=== PATIENT | male | born 2000 | race Caucasian/White ===

== ENCOUNTER 2022-09-23 14:10 | Emergency (ER) | payer BC ==
[2022-09-23 14:26] VITALS: RESP 16
[2022-09-23] MEDS ORDERED: RABIES VACCINE (PCEC) 2.5 UNIT KIT IM ONE (15:40)
[2022-09-23] MEDS ORDERED: DIPH,PERTUS(ACELL)TETVAC-LF 0.5 ML VIAL IM ONE (15:40)
[2022-09-23] MEDS ORDERED: RABIES IMM GLOB 300 UNIT/2 ML VIAL IM ONE (16:05)
--- NOTE | 2022-09-23 16:05 | ED ---
Animal Bite HPI - General Chief Complaint: Animal Bite Stated Complaint: Rabies Exposure Time Seen by Provider: 09/23/22 15:35 Source: patient, RN notes reviewed Mode of arrival: ambulatory Limitations: no limitations - History of Present Illness Initial Comments: Patient is a 22-year-old male presented to the emergency room with concerns of exposure to rabies from a bat. He was bit while wearing gloves after capturing a bat yesterday. He does not believe that the bite broke the skin and was able to verma through his glove but was unsure if he should be vaccinated to prevent rabies. After further discussion of risk factors and exposure revealed he was walking around with possible exposure to bat feces or bat saliva as well. He denies any significant past medical history. - Related Data Previous Rx's Medication Instructions Recorded Rabies Vaccine (Pcec) [Rabavert 2.5 unit IM DIRECTED 3 Days #3 09/23/22 Rabies Vaccine Kit] kit Allergies Allergy/AdvReac Type Severity Reaction Status Date / Time No Known Allergies Allergy Verified 09/23/22 14:21 Review of Systems ROS Statement: Those systems with pertinent positive or pertinent negative responses have been documented in the HPI. ROS Other: All systems not noted in ROS Statement are negative. Past Medical History Past Medical History: No Reported History History of Any Multi-Drug Resistant Organisms: None Reported Past Surgical History: Adenoidectomy, Tonsillectomy Additional Past Surgical History / Comment(s): nasal surgery Past Psychological History: No Psychological Hx Reported Smoking Status: Never smoker Past Alcohol Use History: None Reported Past Drug Use History: Marijuana General Exam Limitations: no limitations General appearance: alert, in no apparent distress Head exam: Present: atraumatic, normocephalic, normal inspection Eye exam: Present: normal appearance, PERRL, EOMI. Absent: scleral icterus, conjunctival injection, periorbital swelling ENT exam: Present: normal exam, mucous membranes moist Neck exam: Present: normal inspection, full ROM Respiratory exam: Absent: respiratory distress, accessory muscle use Cardiovascular Exam: Present: regular rate GI/Abdominal exam: Present: soft. Absent: distended, tenderness, guarding, rebound, rigid Extremities exam: Present: normal inspection, full ROM. Absent: pedal edema, joint swelling Back exam: Present: normal inspection Neurological exam: Present: alert, oriented X3, CN II-XII intact Psychiatric exam: Present: normal affect, normal mood Skin exam: Present: warm, dry, intact, normal color. Absent: rash Course Vital Signs 09/23/22 09/23/22 14:21 17:00 Temperature 99.2 F 98.6 F Pulse Rate 117 H 96 Respiratory 16 16 Rate Blood Pressure 141/85 134/76 O2 Sat by Pulse 95 96 Oximetry Medical Decision Making - Medical Decision Making Was pt. sent in by a medical professional or institution (HARJIT Piper, CRIMINAL JUSTICE TEACHER, urgent care, hospital, or half-way...) When possible be specific @ -No Did you speak to anyone other than the patient for history (EMS, parent, family, police, friend...)? What history was obtained from this source @ -No Did you review nursing and triage notes (agree or disagree)? Why? @ -I reviewed and agree with nursing and triage notes Were old charts reviewed (outside hosp., previous admission, EMS record, old EKG, old radiological studies, urgent care reports/EKG's, half-way records)? Report findings @ -No old charts were reviewed Differential Diagnosis (chest pain, altered mental status, abdominal pain women, abdominal pain men, vaginal bleeding, weakness, fever, dyspnea, syncope, headache, dizziness, GI bleed, back pain, seizure, CVA, palpatations, mental health, musculoskeletal)? @ -not applicable EKG interpreted by me (3pts min.). @ -None done X-rays interpreted by me (1pt min.). @ -None done CT interpreted by me (1pt min.). @ -None done U/S interpreted by me (1pt. min.). @ -None done What testing was considered but not performed or refused? (CT, X-rays, U/S, labs)? Why? @ -None What meds were considered but not given or refused? Why? @ -None Did you discuss the management of the patient with other professionals (professionals i.e. HARJIT Piper, CR[employer]IN[employer] JUSTICE TEACHER, lab, RT, psych nurse, social science teacher, butcherette, teacher, safety and security officer, case making machine operator)? Give summary @ -No Was smoking cessation discussed for >3mins.? @ -No Was critical care preformed (if so, how long)? @ -No Were there social determinants of health that impacted care today? How? (Homelessness, low income, unemployed, alcoholism, drug addiction, transportation, low edu. Level, literacy, decrease access to med. care, skilled nursing, rehab)? @ -No Was there de-escalation of care discussed even if they declined (Discuss DNR or withdrawal of care, Hospice)? DNR status @ -No What co-morbidities impacted this encounter? (DM, HTN, Smoking, COPD, CAD, Cancer, CVA, ARF, Chemo, Hep., AIDS, mental health diagnosis, sleep apnea, morbid obesity)? @ -None Was patient admitted / discharged? Hospital course, mention meds given and route, prescriptions, significant lab abnormalities, going to OR and other pertinent info. @ -22-year-old male presented to the emergency room with concerns of exposure to rabies from a bat. Exam reveals no puncture wounds. No indication for diagnostic imaging or laboratory studies. After further investigation he revealed he was walking around with possible exposure to bat feces or bat saliva. In the setting of unknown exposure status recommendation for rabies vaccination given. Also advise updating of tetanus. He is agreeable to rabies vaccination along with tetanus vaccine. Follow-up vaccinations for rabies vaccine reviewed. Questions and concerns answered. Return parameters to the emergency room discussed. Will discharge home in stable condition with prescription to complete course of rabies vaccinations after possible rabies exposure. Undiagnosed new problem with uncertain prognosis? @ -No Drug Therapy requiring intensive monitoring for toxicity (Heparin, Nitro, Insulin, Cardizem)? @ -No Were any procedures done? @ -No Diagnosis/symptom? @ -Rabies contact Acute, or Chronic, or Acute on Chronic? @ -Acute Uncomplicated (without systemic symptoms) or Complicated (systemic symptoms)? @ -Uncomplicated Side effects of treatment? @ -No Exacerbation, Progression, or Severe Exacerbation? @ -No Poses a threat to life or bodily function? How? (Chest pain, USA, [place], pneumonia, PE, COPD, DKA, ARF, appy, cholecystitis, CVA, Diverticulitis, Homicidal, Suicidal, threat to staff... and all critical care pts) @ -No Case discussed with Dr. Smith. Disposition Clinical Impression: Rabies contact Disposition: HOME SELF-CARE Condition: Stable Instructions (If sedation given, give patient instructions): Rabies Vaccine (By injection), Animal Bite (ED), Rabies (ED) Additional Instructions: Please proceed with follow-up rabies vaccinations in 3, 7 and 14 days per prescription recommendations. Please follow-up with your primary care provider. Please return to the Emergency Department if symptoms worsen or any other concerns. Prescriptions: Rabies Vaccine (Pcec) [Rabavert Rabies Vaccine Kit] 2.5 unit IM DIRECTED 3 Days #3 kit Is patient prescribed a controlled substance at d/c from ED?: No Referrals: Marilynn Hansen MD [Primary Care Provider] - 1-2 days Time of Disposition: 16:29
[2022-09-23 17:02] VITALS: BP 134/76; PULSE 96; TEMP 98.6
== END 2022-09-23 17:02 | disposition home or self-care (01) ==
LOC: EC 14:10
DX: Z20.3 Contact with and (suspected) exposure to rabies (principal); F12.90 Cannabis use, unspecified, uncomplicated; Z23 Encounter for immunization
CPT/HCPCS: 90377; 90471; 90472; 90675; 90715; 96372; 99283

== ENCOUNTER 2024-05-04 13:43 | Emergency (ER) | payer BC ==
[2024-05-04 13:48] VITALS: TEMP 98.5
--- NOTE | 2024-05-04 14:07 | ED ---
Fall HPI <Robin Meier - Last Filed: 05/04/24 16:03> - General Source: patient, RN notes reviewed Mode of arrival: ambulatory Limitations: no limitations <Ariadna Rosario - Last Filed: 05/04/24 19:21> - General Chief Complaint: Fall Stated Complaint: Fall-L Shoulder Injury Time Seen by Provider: 05/04/24 14:05 - History of Present Illness Initial Comments: 23 year old male presenting to the ER for evaluation of a fall. Patient reports while taking a shower this morning he accidentally slipped on soap causing him to fall landing on his left shoulder. He notes extreme pain and deformity to his left upper arm. He also reports an area of swelling which is "numb". Denies any paresthesias radiating down the arm. He denies any head injury, loss of consciousness or blood thinner use. Patient has not taken anything for pain at this time. He denies any neck pain, elbow pain or back pain. No other complaints. Denies any dizziness, lightheadedness, chest pain or shortness of breath prior to fall. (Ariadna Rosario) - Related Data Previous Rx's Medication Instructions Recorded Rabies Vaccine (Pcec) [Rabavert 2.5 unit IM DIRECTED 3 Days #3 09/23/22 Rabies Vaccine Kit] kit Allergies Allergy/AdvReac Type Severity Reaction Status Date / Time No Known Allergies Allergy Verified 05/04/24 13:48 Review of Systems ROS Other: All systems not noted in ROS Statement are negative. <Robin Meier - Last Filed: 05/04/24 16:03> ROS Other: All systems not noted in ROS Statement are negative. <Ariadna Rosario - Last Filed: 05/04/24 19:21> ROS Statement: Those systems with pertinent positive or pertinent negative responses have been documented in the HPI. Past Medical History Past Medical History: No Reported History History of Any Multi-Drug Resistant Organisms: None Reported Past Surgical History: Adenoidectomy, Tonsillectomy Additional Past Surgical History / Comment(s): nasal surgery Past Psychological History: No Psychological Hx Reported Smoking Status: Never smoker Past Alcohol Use History: None Reported Past Drug Use History: Marijuana <Ariadna Rosario - Last Filed: 05/04/24 19:21> General Exam Limitations: no limitations General appearance: alert, in no apparent distress Neck exam: Present: normal inspection. Absent: tenderness, meningismus, lymphadenopathy Respiratory exam: Present: normal lung sounds bilaterally. Absent: respiratory distress, wheezes, rales, rhonchi, stridor Cardiovascular Exam: Present: normal rhythm, tachycardia, normal heart sounds Extremities exam: Present: tenderness (Left upper humerus), normal capillary refill (2+ left radial pulse), other (Edema noted to left proximal humerus no overlying skin changes or wounds.) Neurological exam: Present: alert, oriented X3, CN II-XII intact Psychiatric exam: Present: anxious Skin exam: Present: warm, dry, intact, normal color. Absent: rash <Ariadna Rosario - Last Filed: 05/04/24 19:21> Course Vital Signs 05/04/24 05/04/24 05/04/24 13:45 15:41 15:48 Temperature 98.5 F Pulse Rate 103 H 82 74 Respiratory 22 18 18 Rate Blood Pressure 146/94 154/98 140/90 O2 Sat by Pulse 97 97 96 Oximetry 05/04/24 05/04/24 05/04/24 15:55 16:10 16:25 Temperature Pulse Rate 82 71 75 Respiratory 18 18 18 Rate Blood Pressure 148/85 135/84 128/83 O2 Sat by Pulse 98 98 98 Oximetry 05/04/24 16:40 Temperature Pulse Rate 74 Respiratory 20 Rate Blood Pressure 124/74 O2 Sat by Pulse 99 Oximetry Procedures - Orthopedic Joint Reduction Joint #1 Consent Obtained: verbal consent, written consent, emergent situation Side: left Joint Reduction Location: shoulder Analgesia: procedural sedation Shoulder Technique Used (if applicable): other Post-Reduction Neuro Exam: intact Post-Reduction Vascular Exam: intact Post Reduction X-Ray Obtained: Yes Post Reduction X-Ray Results: reduced Patient Tolerated Procedure: well - Procedural Sedation *Procedural Sedation Start Time: 15:44 *Procedural Sedation Stop Time: 15:48 *Risks,benefits, and alternative therapies discussed?: Yes *Patient indicates understanding of risk/benefit discussion?: Yes *Indications: fracture/dislocation reduction *Previous Adverse Reaction to Anesthesia/Sedation?: No *ASA Class: I *Mallampati Airway Score: 2 Preparation: nutrition associate applied, pulse oximeter, capnometry used, supplemental O2 applied IV Propofol Dose (mgs): 200 Complications: none Patient Tolerated Procedure: well <Bayudan,Robin D - Last Filed: 05/04/24 16:03> Medical Decision Making - Radiology Data Radiology results: report reviewed, image reviewed <Ariadna Rosario - Last Filed: 05/04/24 19:21> - Medical Decision Making Was pt. sent in by a medical professional or institution (, HARJIT, [employer], urgent care, hospital, or alf...) When possible be specific @ -No Did you speak to anyone other than the patient for history (EMS, parent, family, police, friend...)? What history was obtained from this source @ -No Did you review nursing and triage notes (agree or disagree)? Why? @ -I reviewed and agree with nursing and triage notes Were old charts reviewed (outside hosp., previous admission, EMS record, old EKG, old radiological studies, urgent care reports/EKG's, alf records)? Report findings @ -No old charts were reviewed Differential Diagnosis (chest pain, altered mental status, abdominal pain women, abdominal pain men, vaginal bleeding, weakness, fever, dyspnea, syncope, headache, dizziness, GI bleed, back pain, seizure, CVA, palpatations, mental health, musculoskeletal)? @ -Differential Musculoskeletal: Muscular strain, contusion, ligament sprain, fracture, arthritis, septic arthritis, bursitis, cellulitis, muscle spasm, nerve compression, DVT, arterial occlusion, herpes zoster, electrolyte abnormality, tumor.... This is not meant to be in all inclusive list EKG interpreted by me (3pts min.). @ -None done X-rays interpreted by me (1pt min.). @ -Left shoulder x-rays interpreted by me showing anterior shoulder dislocation. Postreduction left shoulder x-rays showing improved alignment of dislocation no fractures. CT interpreted by me (1pt min.). @ -None done U/S interpreted by me (1pt. min.). @ -None done What testing was considered but not performed or refused? (CT, X-rays, U/S, labs)? Why? @ -None What meds were considered but not given or refused? Why? @ -None Did you discuss the management of the patient with other professionals (professionals i.e. , HARJIT, [employer], lab, RT, psych nurse, director of social services, awning craftsman, teacher, tank officer, outsole caser)? Give summary @ -No Was smoking cessation discussed for >3mins.? @ -No Was critical care preformed (if so, how long)? @ -No Were there social determinants of health that impacted care today? How? (Homelessness, low income, unemployed, alcoholism, drug addiction, transportation, low edu. Level, literacy, decrease access to med. care, long-term, rehab)? @ -No Was there de-escalation of care discussed even if they declined (Discuss DNR or withdrawal of care, Hospice)? DNR status @ -No What co-morbidities impacted this encounter? (DM, HTN, Smoking, COPD, CAD, Cancer, CVA, ARF, Chemo, Hep., AIDS, mental health diagnosis, sleep apnea, morbid obesity)? @ -None Was patient admitted / discharged? Hospital course, mention meds given and route, prescriptions, significant lab abnormalities, going to OR and other pertinent info. @ -Discharge. 23-year-old male presented to the ER for evaluation of left shoulder injury. Upon examination, patient resting comfortably exam no signs acute distress. Patient is tachycardic at 103 bpm vitals otherwise within acceptable limits. Tachycardia believed to be due to pain. There is noticeable deformity left shoulder. Patient is neurovascularly intact. Left shoulder x- ray showing an anterior dislocation. Patient given IM Dilaudid and ibuprofen for pain control in the emergency department. Patient agreeable for conscious sedation and shoulder reduction. See reduction and sedation note above. Postreduction film showing appropriate alignment with no acute fractures. Patient monitored in the emergency department for approximately 1 hour post sedation with return to baseline post sedation. Patient is stable for discharge at this time. Patient placed in a sling and instructed to follow-up with orthopedics. Tylenol threes given for outpatient pain control. Strict return parameters discussed. Patient discharged in stable condition. Orthopedic referral given. Patient verbally expressed understanding agreement with care plan. Case discussed with ED attending, Dr. Meier. Undiagnosed new problem with uncertain prognosis? @ -No Drug Therapy requiring intensive monitoring for toxicity (Heparin, Nitro, Insulin, Cardizem)? @ -No Were any procedures done? @ -No Diagnosis/symptom? @ -Anterior shoulder dislocation Acute, or Chronic, or Acute on Chronic? @ -Acute Uncomplicated (without systemic symptoms) or Complicated (systemic symptoms)? @ -Uncomplicated Side effects of treatment? @ -No Exacerbation, Progression, or Severe Exacerbation? @ -No Poses a threat to life or bodily function? How? (Chest pain, USA, [place], pneumonia, PE, COPD, DKA, ARF, appy, cholecystitis, CVA, Diverticulitis, Homicidal, Suicidal, threat to staff... and all critical care pts) @ -Yes, limb use (Ariadna Rosario) Disposition <Robin Meier - Last Filed: 05/04/24 16:03> Is patient prescribed a controlled substance at d/c from ED?: No Time of Disposition: 16:42 <Ariadna Rosario - Last Filed: 05/04/24 19:21> Clinical Impression: Anterior shoulder dislocation Disposition: HOME SELF-CARE Condition: Stable Instructions (If sedation given, give patient instructions): Shoulder Dislocation (ED), Moderate Sedation (ED) Additional Instructions: Follow-up with orthopedics. Return to the ER for any new or worsening concerns. Referrals: Marilynn Hansen MD [Primary Care Provider] - 1-2 days Bart Wahl MD [Medical Doctor] - 1-2 days
[2024-05-04] MEDS: IBUPROFEN 600 MG TAB PO STA (14:11)
[2024-05-04] MEDS: ONDANSETRON ODT 4 MG TAB PO STA (14:11)
[2024-05-04] MEDS: HYDROmorphone 1 MG/ML 1 ML SYRINGE IM STA (14:13)
--- NOTE | 2024-05-04 14:49 | XR ---
EXAMINATION TYPE: XR shoulder complete LT DATE OF EXAM: 05/04/2024 2:36 PM COMPARISON: None. CLINICAL INDICATION: Male, 23 years old with history of fall deformity, pain TECHNIQUE: Three views of the left shoulder are obtained. FINDINGS: There is medial inferior positioning of the humeral head relative to the osseous glenoid. No acute fracture is seen. The acromioclavicular joint appears within normal limits. The visualized ribs are intact and unremarkable. IMPRESSION: Findings are consistent with anterior glenohumeral joint dislocation. [facility], , 05/04/2024 2:46 PM
[2024-05-04] MEDS: PROPOFOL 10 MG/ML 20 ML VIAL IV ONE (15:43)
[2024-05-04] MEDS: LORazepam 2 MG/ML INJ IV STA (16:05)
--- NOTE | 2024-05-04 16:23 | XR ---
EXAMINATION TYPE: XR shoulder limited LT DATE OF EXAM: 05/04/2024 4:13 PM COMPARISON: None. CLINICAL INDICATION: Male, 23 years old with history of post reduction, pain TECHNIQUE: AP view(s) obtained. FINDINGS: Left humeral head articulates with the glenoid. No acute fractures are identified post reduction. IMPRESSION: 1. No acute fractures post reduction. [facility], , 05/04/2024 4:20 PM
[2024-05-04 16:48] VITALS: BP 124/74; PULSE 74; RESP 20
[2024-05-04] MEDS: ACET/COD 300 MG/30 MG STARTER PACK 6 TAB BTL PO STA (16:50)
== END 2024-05-04 17:01 | disposition home or self-care (01) ==
LOC: EC 13:43 → SUPCPDRO 13:43 → EC 17:01
DX: S43.015A Anterior dislocation of left humerus, initial encounter (principal); W01.0XXA Fall on same level from slipping, tripping and stumbling without subsequent striking against object, initial encounter
CPT/HCPCS: 73030; 73020; 99283; 96372; 23650; J1171; J2704

== ENCOUNTER 2024-05-11 19:23 | Emergency (ER) | payer BC ==
[2024-05-11 19:26] VITALS: RESP 18; TEMP 99.4
--- NOTE | 2024-05-11 19:46 | ED ---
Chest Pain HPI - General Chief Complaint: Chest Pain Stated Complaint: Chest Pain,Sob Time Seen by Provider: 05/11/24 19:43 Source: patient, RN notes reviewed, old records reviewed Mode of arrival: ambulatory Limitations: no limitations - History of Present Illness Initial Comments: 23-year-old male presented the ER for evaluation of right-sided chest di scomfort. Patient states this started 2 days ago and has been intermittent in nature. He describes it as a intermittent sharp right lower chest discomfort. He states it comes and flares and notices it does increase after coming inside from being outside. Patient does report shortness of breath during these flares. He states he feels like he cannot take a deep breath then which causes increase in pain. He denies any dizziness, lightheadedness, nausea or vomiting. No known cardiac history. No history of blood clots. No recent travel. Patient does smoke marijuana. Patient recently had an anterior shoulder dislocation and is currently wearing a sling. He had massage today which stated he improved the pain. He also took acetaminophen and ibuprofen prior to arrival. No other complaints at this time. - Related Data Previous Rx's Medication Instructions Recorded Rabies Vaccine (Pcec) [Rabavert 2.5 unit IM DIRECTED 3 Days #3 09/23/22 Rabies Vaccine Kit] kit Allergies Allergy/AdvReac Type Severity Reaction Status Date / Time No Known Allergies Allergy Verified 05/11/24 19:26 Review of Systems ROS Statement: Those systems with pertinent positive or pertinent negative responses have been documented in the HPI. ROS Other: All systems not noted in ROS Statement are negative. EKG Findings - EKG Comments: EKG Findings:: EKG taken at 19: 34 showing a sinus rhythm. No ST segment elevations or depressions. No T wave inversions. Ventricular rate 99, IA interval 157, QRS duration 94, QT/QTc 324/380. Past Medical History Past Medical History: No Reported History History of Any Multi-Drug Resistant Organisms: None Reported Past Surgical History: Adenoidectomy, Tonsillectomy Additional Past Surgical History / Comment(s): nasal surgery Past Psychological History: Anxiety, Depression Smoking Status: Never smoker Past Alcohol Use History: None Reported Past Drug Use History: Marijuana General Exam Limitations: no limitations General appearance: alert, in no apparent distress Respiratory exam: Present: normal lung sounds bilaterally. Absent: respiratory distress, wheezes, rales, rhonchi, stridor Cardiovascular Exam: Present: regular rate, normal rhythm, normal heart sounds. Absent: systolic murmur, diastolic murmur, rubs, gallop, clicks Extremities exam: Present: normal inspection, full ROM, normal capillary refill. Absent: tenderness, pedal edema, joint swelling, calf tenderness Neurological exam: Present: alert, oriented X3, CN II-XII intact Skin exam: Present: warm, dry, intact, normal color. Absent: rash Course Vital Signs 05/11/24 05/11/24 19:24 21:26 Temperature 99.4 F Pulse Rate 100 97 Respiratory 18 18 Rate Blood Pressure 140/97 133/86 O2 Sat by Pulse 97 99 Oximetry Chest Pain MDM - MDM Was pt. sent in by a medical professional or institution ([facility], [facility], urgent care, hospital, or skilled nursing...) When possible be specific @ -Patient sent from urgent care for evaluation of right-sided chest discomfort Did you speak to anyone other than the patient for history (EMS, parent, family, police, friend...)? What history was obtained from this source @ -No Did you review nursing and triage notes (agree or disagree)? Why? @ -I reviewed and agree with nursing and triage notes Were old charts reviewed (outside hosp., previous admission, EMS record, old EKG, old radiological studies, urgent care reports/EKG's, skilled nursing records)? Report findings @ -No old charts were reviewed Differential Diagnosis (chest pain, altered mental status, abdominal pain women, abdominal pain men, vaginal bleeding, weakness, fever, dyspnea, syncope, headache, dizziness, GI bleed, back pain, seizure, CVA, palpatations, mental health, musculoskeletal)? @ -Differential Chest Pain:Stable Angina, Unstable Angina, STEMI, NSTEMI Aortic Dissection, Pneumothorax, Musculoskeletal, Esophageal Spasm GERD, Cholecystitis, Pancreatitis, Zoster, this is not meant to be an all-inclusive list. EKG interpreted by me (3pts min.). @ -As above X-rays interpreted by me (1pt min.). @ -CXR interpreted me negative for focal consolidation, pneumothorax or pleural effusions. CT interpreted by me (1pt min.). @ -None done U/S interpreted by me (1pt. min.). @ -None done What testing was considered but not performed or refused? (CT, X-rays, U/S, labs)? Why? @ -None What meds were considered but not given or refused? Why? @ -None Did you discuss the management of the patient with other professionals (professionals i.e. , PA, B[employer] S[employer]TER, lab, RT, psych nurse, social and human services assistant, in processing instructor, teacher, flight communications officer, disability case manager)? Give summary @ -No Was smoking cessation discussed for >3mins.? @ -No Was critical care preformed (if so, how long)? @ -No Were there social determinants of health that impacted care today? How? (Homelessness, low income, unemployed, alcoholism, drug addiction, transportation, low edu. Level, literacy, decrease access to med. care, long-term, rehab)? @ -No Was there de-escalation of care discussed even if they declined (Discuss DNR or withdrawal of care, Hospice)? DNR status @ -No What co-morbidities impacted this encounter? (DM, HTN, Smoking, COPD, CAD, Cancer, CVA, ARF, Chemo, Hep., AIDS, mental health diagnosis, sleep apnea, morbid obesity)? @ -None Was patient admitted / discharged? Hospital course, mention meds given and route, prescriptions, significant lab abnormalities, going to OR and other pertinent info. @ -Discharge. 23-year-old male presented to the ER for evaluation of right- sided chest discomfort. Upon rooming, history and physical exam completed. Patient is tachycardic in the low 110s. Vitals otherwise within acceptable limits. Cardiac workup obtained with undetectable troponin. D-dimer negative at 0.38. Viral swabs negative. EKG showing sinus rhythm no acute evidence of infarct or ischemia. Patient given IV fluids in the emergency department. Upon reevaluation, patient resting comfortably in exam no signs of acute distress. Results discussed with patient, all questions answered. I advised [id number] ibuprofen and Tylenol for pain control outpatient as pain believed to be musculoskeletal in nature. Strict return parameters discussed. Patient discharged in stable condition with follow-up to PCP. Patient verbally expressed understanding agreement with care plan. Case discussed with ED attending, Dr. Smith. Undiagnosed new problem with uncertain prognosis? @ -No Drug Therapy requiring intensive monitoring for toxicity (Heparin, Nitro, Insulin, Cardizem)? @ -No Were any procedures done? @ -No Diagnosis/symptom? @ -Atypical chest pain Acute, or Chronic, or Acute on Chronic? @ -Acute Uncomplicated (without systemic symptoms) or Complicated (systemic symptoms)? @ -Uncomplicated Side effects of treatment? @ -No Exacerbation, Progression, or Severe Exacerbation? @ -No Poses a threat to life or bodily function? How? (Chest pain, [place], [place], pneumonia, PE, COPD, DKA, ARF, appy, cholecystitis, CVA, Diverticulitis, Homicidal, Suicidal, threat to staff... and all critical care pts) @ -No Disposition Clinical Impression: Atypical chest pain Disposition: HOME SELF-CARE Condition: Stable Additional Instructions: Follow-up closely with PCP. Return to the ER for any new or worsening concerns. Is patient prescribed a controlled substance at d/c from ED?: No Referrals: Marilynn Hansen MD [Primary Care Provider] - 1-2 days Time of Disposition: 22:01
[2024-05-11 20:19] LABS: Basophils # (A) 0.1 k/uL (0-0.2); Basophils % (A) 1 %; Eosinophils # (A) 0.4 k/uL (0-0.7); Eosinophils % (A) 4 %; HGB 16.6 gm/dL (13.0-17.5); Lymphocytes % (A) 19 %; MCH 28.2 pg (25.0-35.0); MCHC 33.2 g/dL (31.0-37.0); Mean Platelet Volume 8.8; Monocytes # (A) 0.9 k/uL (0-1.0); Monocytes % (A) 9 %; Neutrophils % (A) 65 %; Platelet Count 260 k/uL (150-450); RBC 5.89 m/uL (4.30-5.90); RDW 13.1 % (11.5-15.5); WBC 10.7 k/uL (3.8-10.6)
--- NOTE | 2024-05-11 20:28 | XR ---
EXAMINATION TYPE: XR chest 2V DATE OF EXAM: 05/11/2024 8:23 PM COMPARISON: None. CLINICAL INDICATION: Male, 23 years old with history of Chest Pain, TECHNIQUE: Frontal and lateral views of the chest are obtained. FINDINGS: There is no focal air space opacity, pleural effusion, or pneumothorax seen. The cardiac silhouette size is within normal limits. The osseous structures are intact. IMPRESSION: No acute cardiopulmonary process. [facility], , 05/11/2024 8:26 PM
[2024-05-11 20:55] LABS: ALT 70 U/L (4-49); AST 43 U/L (17-59); African American GFR (CKD) >90 (>60 ml/min/1.73 sqM); Albumin 4.6 g/dL (3.5-5.0); Alkaline Phosphatase 65 U/L (38-126); Anion Gap 10 mmol/L; Blood Urea Nitrogen 14 mg/dL (9-20); Calcium 9.7 mg/dL (8.4-10.2); Carbon Dioxide 30 mmol/L (22-30); Chloride 98 mmol/L (98-107); Glucose 73 mg/dL (74-99); Magnesium 2.1 mg/dL (1.6-2.3); Non-African American GFR(CKD) 79 (>60 ml/min/1.73 sqM); Potassium 4.5 mmol/L (3.5-5.1); Sodium 138 mmol/L (137-145); Total Bilirubin 0.6 mg/dL (0.2-1.3); Total Protein 7.5 g/dL (6.3-8.2)
[2024-05-11 21:10] LABS: Influenza A Not Detected (Not Detectd); Influenza B Not Detected (Not Detectd); RSV Not Detected (Not Detectd)
[2024-05-11] MEDS: SODIUM CHLORIDE 0.9% 1,000 ML IV ONE (21:15)
[2024-05-11 21:50] VITALS: BP 133/86; PULSE 97
== END 2024-05-11 22:09 | disposition home or self-care (01) ==
LOC: EC 19:23
DX: R07.89 Other chest pain (principal)
CPT/HCPCS: 36415; 71046; 80053; 83735; 84484; 85025; 85379; 85610; 85730; 87636; 93005; 96360; 99285